=== PATIENT | female | born 1980 | race American Indian/Alaskan Native ===

== ENCOUNTER 2017-10-15 08:13 | Emergency (ER) | payer SELFPAY ==
[2017-10-15 08:59] LABS: Bacteria,Urine 1+ /HPF (Negative); Bilirubin,Urine NEG (Negative); Blood,Urine NEG (Negative); Color,Urine Yellow (Yellow); Mucus,Urine 1+ /HPF; Protein,Urine <15 mg/dL mg/dL (Negative)
[2017-10-15 09:13] LABS: Basophils % (Auto) 0.6 % (0.0-1.8); Eosinophils % (Auto) 0.5 % (0.0-4.3); Hematocrit 36.8 % (30.3-42.9); Hemoglobin 12.1 gm/dl (10.1-14.3); Lymphocytes # (Auto) 1.4 K/mm3 (1.2-5.4); Lymphocytes % (Auto) 26.1 % (13.4-35.0); Mean Corpuscular HGB Conc 33 % (30-34); Mean Corpuscular Hemoglobin 30 pg (28-32); Mean Corpuscular Volume 91 fl (79-97); Monocytes # (Auto) 0.4 K/mm3 (0.0-0.8); Monocytes % (Auto) 8.2 % (0.0-7.3); Platelet Count 253 K/mm3 (140-440); Red Blood Count 4.04 M/mm3 (3.65-5.03); Red Cell Distribution Width 12.9 % (13.2-15.2)
--- NOTE | 2017-10-15 09:18 | Emergency Department Report ---
HPI - General Chief Complaint: Psych Time Seen by Provider: 10/15/17 09:04 - HPI HPI: 37-year-old [place]kin[place] female presents the emergency department from home with what appears to be some level of depression. The patient has not been talking much, she has been pacing around, has been having difficulty sleeping and has not been eating much, and all this has gone on for the past few days. While the patient has not been talking much, she expressed to her significant other that she is not happy with her job, that she has been having "issues" with her job, and that she is concerned about the finances. She will not talk to me but will shake or not her head to answer some questions and denies any suicidal or homicidal ideations or any hallucinations. She does not have any diagnosed medical or psychiatric history. There is a history of schizophrenia and her mother. She has not taken anything for her symptoms prior to her presentation. ED Past Medical Hx - Past Medical History Previous Medical History?: Yes - Surgical History Past Surgical History?: Yes Additional Surgical History: x 2 - Social History Smoking Status: Never Smoker Substance Use Type: Non Opiate Pain ED Review of Systems ROS: Stated complaint: MENTAL HEALTH Other details as noted in HPI Comment: All other systems reviewed and negative Constitutional: denies: chills, fever Eyes: denies: eye pain, eye discharge, vision change ENT: denies: ear pain, throat pain Respiratory: denies: cough, shortness of breath, wheezing Cardiovascular: denies: chest pain, palpitations Gastrointestinal: denies: abdominal pain, nausea, diarrhea Genitourinary: denies: urgency, dysuria, discharge Musculoskeletal: denies: back pain, joint swelling, arthralgia Skin: denies: rash, lesions Neurological: denies: headache, weakness, paresthesias Psychiatric: depression. denies: auditory hallucinations, visual hallucinations , homicidal thoughts, suicidal thoughts Physical Exam - Physical Exam Vital Signs: Vital Signs 10/15/17 08:20 Temperature 98.1 F Pulse Rate 59 L Respiratory 20 Rate Blood Pressure 119/88 O2 Sat by Pulse 98 Oximetry Physical Exam: GENERAL: The patient is well-developed well-nourished. HENT: Normocephalic. Atraumatic. Patient has moist mucous membranes. EYES: Extraocular motions are intact. Pupils equal reactive to light bilaterally. NECK: Supple. Trachea is mental. CHEST/LUNGS: Clear to auscultation. There is no respiratory distress noted. HEART/CARDIOVASCULAR: Regular. There is no tachycardia. There is no murmur. ABDOMEN: Abdomen is soft, nontender. Patient has normal bowel sounds. There is no abdominal distention. SKIN: Skin is warm and dry. NEURO: Patient is awake and appears alert but is nonverbal but this appears to be by choice. She will nod and shake her head to answer questions and eventually did talk to me without any signs of any slurred speech or aphasia. MUSCULOSKELETAL: There is no tenderness or deformity. There is no evidence of acute injury. PSYCH: Patient has a flat affect. ED Course Vital Signs 10/15/17 08:20 Temperature 98.1 F Pulse Rate 59 L Respiratory 20 Rate Blood Pressure 119/88 O2 Sat by Pulse 98 Oximetry ED Medical Decision Making - Lab Data Result diagrams: 10/15/17 09:02 10/15/17 09:02 - Medical Decision Making Patient presents with what appears to be some depression. She has not been sleeping, has been pacing around, has not been eating or drinking much and is admitted to having a lot of stress regarding her job and financial responsibilities. She denies any suicidal or homicidal ideations or any hallucinations. She does not appear to be having any acute psychosis and does not appear to feel the criteria to require a 1013 or inpatient psychiatric admission. The patient was seen by the psych antique repairer, Ave, who agrees with this assessment and is provided multiple outpatient psychiatric referrals. Prior to discharge, the patient did start talking a little and asked for a work note. She was seen ambulatory without any instability. She has been encouraged to follow-up with these outpatient psychiatric referrals but to return to the emergency Department with any worsening of her symptoms or any signs of suicidal/homicidal ideations or acute psychosis. - Differential Diagnosis depression, bipolar, mood disorder Critical Care Time: No Critical care attestation.: If time is entered above; I have spent that time in minutes in the direct care of this critically ill patient, excluding procedure time. ED Disposition Clinical Impression: Depression Qualifiers: Depression Type: unspecified Qualified Code(s): F32.9 - Major depressive disorder, single episode, unspecified Disposition: DC-01 TO HOME OR SELFCARE Is pt being admited?: No Condition: Stable Instructions: Depression (ED) Additional Instructions: Please follow-up with your primary care physician. Also please follow-up with one of the psychiatric referrals that she were given including [place] [facility], [facility] and the [facility]. Return to the emergency Department with any worsening of your symptoms, thoughts of harming yourself or others, or with any acute distress. Referrals: PRIMARY CARE, [Primary Care Provider] - 3-5 Days [facility] Days Forms: Work/School Release Form(ED) Time of Disposition: 10:34
[2017-10-15 09:30] LABS: Amphetamine Screen,Urine PRESUMPTIVE NEGATIVE; Benzodiazepines Screen,Urine PRESUMPTIVE NEGATIVE; Cannabinoid Screen,Urine PRESUMPTIVE NEGATIVE; Cocaine Screen,Urine PRESUMPTIVE NEGATIVE; Methadone Screen,Urine PRESUMPTIVE NEGATIVE; Opiate Screen,Urine PRESUMPTIVE NEGATIVE
[2017-10-15 09:36] LABS: BUN/Creatinine Ratio 17; Blood Urea Nitrogen 10 mg/dL (7-17); Hemolysis Index 13
[2017-10-15 11:00] VITALS: BP 122/78
== END 2017-10-15 10:48 | disposition home or self-care (01) ==
LOC: ED 08:13
DX: F32.9 Major depressive disorder, single episode, unspecified (principal)
CPT/HCPCS: 36415; 80048; 80307; 81001; 84703; 85025; 99283; G0480; 80320

== ENCOUNTER 2018-09-18 17:09 | Emergency (ER) | payer OTHER ==
[2018-09-18 17:17] VITALS: BP 140/94
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
[2018-09-18 17:43] LABS: HCG Qualitative,Urine Negative (Negative)
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
== END 2018-09-18 21:50 | disposition home or self-care (01) ==
LOC: ED 17:09
DX: M54.5 Low back pain (principal); V49.49XA Driver injured in collision with other motor vehicles in traffic accident, initial encounter; Y93.89 Activity, other specified; Y92.488 Other paved roadways as the place of occurrence of the external cause; Y99.8 Other external cause status
CPT/HCPCS: 72070; 72100; 81025; 99283

== ENCOUNTER 2019-03-04 11:23 | Emergency (ER) | payer OTHER ==
--- NOTE | 2019-03-04 11:41 | Event Note ---
ED Screening Note ED Screening Note: at 8:30 AM this morning attempted overdose states she feels drowsy denies any other symptoms took 4 toradol and 5-7 robaxin states she had a cup of wine as well took them to harm herself never done this before never been to a psych facility in the past no PMHx no allergies to meds LNMP: last week non smoker occ drinker denies drug use This initial assessment/diagnostic orders/clinical plan/treatment(s) is/are subject to change based on patients health status, clinical progression and re-assessment by fellow clinical providers in the ED. Further treatment and workup at subsequent clinical providers discretion. Patient/guardian urged not to elope from the ED as their condition may be serious if not clinically assessed and managed. Initial orders include: psych protocol, poison control called by RN will send to the MAIN ED for evaluation by MD poison control called by RN: no charcoal recommended at this time, recommended a CBC, CMP, salicylate level, tylenol level, alcohol level, and EKG
[2019-03-04 11:59] LABS: Eosinophils % (Auto) 0.9 % (0.0-4.3); Hemoglobin 13.1 gm/dl (10.1-14.3); Lymphocytes # (Auto) 1.7 K/mm3 (1.2-5.4); Lymphocytes % (Auto) 37.3 % (13.4-35.0); Mean Corpuscular HGB Conc 35 % (30-34); Mean Corpuscular Volume 90 fl (79-97); Monocytes # (Auto) 0.3 K/mm3 (0.0-0.8); Platelet Count 294 K/mm3 (140-440); Red Cell Distribution Width 13.3 % (13.2-15.2)
[2019-03-04 12:22] LABS: Alanine Aminotransferase 9 units/L (7-56); Albumin 3.2 g/dL (3.9-5); BUN/Creatinine Ratio 9; Blood Urea Nitrogen 10 mg/dL (7-17); Calcium 8.8 mg/dL (8.4-10.2); Hemolysis Index 8
--- NOTE | 2019-03-04 13:59 | Emergency Department Report ---
ED Psych HPI - General Chief Complaint: Overdose Stated Complaint: OVERDOSE Time Seen by Provider: 03/04/19 11:38 Source: patient Mode of arrival: Ambulatory - History of Present Illness Initial Comments: 38-year-old female presents to ED with suicide attempt. Patient attempted overdose by taking 4 Toradol pills, in 5-7 Robaxin pills. Patient reports drinking wine along with it. Denies any past history of mental illness or suicide attempt. Patient states she called a friend after she took the pills, and that friend brought her to the ER. MD Complaint: suicidal ideation -: This morning Associated Psychiatric Symptoms: suicidal ideation History of same: No Quality: constant Improves With: none Worsens With: none Context: significant life stressor Associated Symptoms: denies other symptoms If Self Harm: intentional overdose - Related Data Previous Rx's Medication Instructions Recorded Last Taken Type Ketorolac [Toradol] 10 mg PO Q6H PRN #15 tablet 09/18/18 03/04/19 08:30 Rx methOCARBAMOL [Robaxin] 750 mg PO Q8H PRN #21 tablet 09/18/18 03/04/19 08:30 Rx Allergies Allergy/AdvReac Type Severity Reaction Status Date / Time No Known Allergies Allergy Unverified 10/15/17 08:20 ED Review of Systems ROS: Stated complaint: OVERDOSE Other details as noted in HPI Comment: All other systems reviewed and negative Neurological: headache Psychiatric: depression, suicidal thoughts ED Past Medical Hx - Past Medical History Previous Medical History?: No - Surgical History Past Surgical History?: No Additional Surgical History: x 2 - Social History Smoking Status: Never Smoker - Medications Home Medications: Home Medications Medication Instructions Recorded Confirmed Last Taken Type Ketorolac [Toradol] 10 mg PO Q6H PRN #15 tablet 09/18/18 03/04/19 03/04/19 08:30 Rx methOCARBAMOL [Robaxin] 750 mg PO Q8H PRN #21 tablet 09/18/18 03/04/19 03/04/19 08:30 Rx ED Physical Exam - General Limitations: No Limitations General appearance: alert, in no apparent distress - Head Head exam: Present: atraumatic, normocephalic - Eye Eye exam: Present: normal appearance, PERRL, EOMI - ENT ENT exam: Present: mucous membranes moist - Neck Neck exam: Present: normal inspection - Respiratory Respiratory exam: Present: normal lung sounds bilaterally. Absent: respiratory distress - Cardiovascular Cardiovascular Exam: Present: regular rate, normal rhythm - GI/Abdominal GI/Abdominal exam: Present: soft. Absent: distended - Extremities Exam Extremities exam: Present: normal inspection - Neurological Exam Neurological exam: Present: alert, oriented X3, CN II-XII intact. Absent: motor sensory deficit - Psychiatric Psychiatric exam: Present: normal affect, normal mood - Skin Skin exam: Present: warm, dry, intact, normal color ED Course Vital Signs 03/04/19 03/04/19 03/04/19 11:40 11:59 13:01 Temperature 98.3 F 98.5 F Pulse Rate 79 64 Respiratory 18 13 18 Rate Blood Pressure 140/100 134/86 [Left] O2 Sat by Pulse 98 99 98 Oximetry ED Medical Decision Making - Lab Data Result diagrams: 03/04/19 11:46 03/04/19 11:46 - EKG Data -: EKG Interpreted by Tx EKG shows normal: sinus rhythm, axis, intervals, QRS complexes, ST-T waves Rate: normal - EKG Data Interpretation: no acute changes - Medical Decision Making - suicidal ideation, attempted overdose - pt placed on 1013 - labs normal - pt medically clear for mental health evaluation - will dispo per psych - Differential Diagnosis SI, depression Critical care attestation.: If time is entered above; I have spent that time in minutes in the direct care of this critically ill patient, excluding procedure time. ED Disposition Clinical Impression: Suicidal ideation, Intentional overdose of drug in tablet form Disposition: DC/TX-65 PSY HOSP/PSY UNIT Is pt being admited?: No Condition: Stable
[2019-03-04 14:11] LABS: Bilirubin,Urine NEG (Negative); Blood,Urine NEG (Negative); Color,Urine Yellow (Yellow); Mucus,Urine 2+ /HPF; Protein,Urine <15 mg/dL mg/dL (Negative); Urobilinogen,Urine < 2.0 mg/dL (<2.0)
[2019-03-04 14:15] LABS: Amphetamine Screen,Urine PRESUMPTIVE NEGATIVE; Benzodiazepines Screen,Urine PRESUMPTIVE NEGATIVE; Cannabinoid Screen,Urine PRESUMPTIVE NEGATIVE; Cocaine Screen,Urine PRESUMPTIVE NEGATIVE; Methadone Screen,Urine PRESUMPTIVE NEGATIVE; Opiate Screen,Urine PRESUMPTIVE NEGATIVE
[2019-03-04] MEDS ORDERED: HALDOL IM ONE (22:08)
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
--- NOTE | 2019-03-06 12:01 | Progress Note ---
Subjective - Reason for Consult Consult date: 03/06/19 Reason for consult: Psychiatry Follow-up - Chief Complaint Chief complaint: "I made a mistake" 38-year-old female that presents to ED after a suicide attempt via overdose. Today the patient was calm and cooperative during the assessment. She stated that she made a "terrible mistake" by taking several pills. She stated that she was "stressed" at the time. She stated that it was a better way of handling her crisis. She stated that she is willing to seek therapy once discharged. She denies SI/HI's and AVH's. Mental Status Exam - Vital signs Last Vital Signs Temp 97.8 F 03/06/19 09:41 Pulse 73 03/06/19 09:41 Resp 18 03/06/19 09:41 BP 138/100 03/06/19 09:41 Pulse Ox 99 03/06/19 09:41 - Exam Narrative exam: MSE: Appearance: calm, cooperative Behavior: regular eye contact Speech: regular rate and tone Mood: "okay" Affect: congruent to mood Thought Process: circumstantial Thought Content: denies SI/HI's and AVH's Motor Activity: lying in bed Cognition: A/O x 3 Insight: fair Judgment: variable Assessment and Plan Impression: MDD. Today the patient was calm and cooperative during the assessment. Recommendations/Plan: Continue 1013 and gather collateral information. Risks/Benefits of SSRI's discussed with the patient, she prefer talk therapy at this time. Dispo: The patient was referred to inpatient psychiatric services. Staffed with Dr. Matthias aMin.
[2019-03-07 08:00] VITALS: BP 127/83
--- NOTE | 2019-03-07 10:32 | Progress Note ---
Subjective - Reason for Consult Consult date: 03/07/19 Reason for consult: Psychiatry Follow-up - Chief Complaint Chief complaint: "I will not do that again" 38-year-old female that presents to ED after a suicide attempt via overdose. Today the patient was calm and cooperative during the assessment. Per collateral information from the patient's sister Justine Loza at [phone], she stated that the patient was "stressed." She denied that the patinet tried to kill herslef in the past. She stated that she will be the patient's support system. The patient denies SI/HI's and AVH's. The patient have been pleasant since her arrival to the ER. Mental Status Exam - Vital signs Last Vital Signs Temp 98.4 F 03/07/19 07:41 Pulse 83 03/07/19 07:41 Resp 16 03/07/19 07:41 BP 127/83 03/07/19 07:41 Pulse Ox 100 03/07/19 07:41 - Exam Narrative exam: MSE: Appearance: calm, cooperative Behavior: regular eye contact Speech: regular rate and tone Mood: "okay" Affect: congruent to mood Thought Process: logical Thought Content: denies SI/HI's and AVH's Motor Activity: lying in bed Cognition: A/O x 3 Insight: appropriate Judgment: appropriate Assessment and Plan Impression: MDD. Today the patient was calm and cooperative during the assessment. The patient is no threat to self. Suicide Risk Assessment I. This screening and assessment is based on information collected from the following sources: II. SUICIDE RISK SCREENING (within last 30 days): A.) Suicidal thoughts/behaviors: Yes SUICIDE RISK ASSESSMENT III. FACTORS THAT INCREASE RISK: A.) Demographic and Substance Use Factors: No B.) Current/Recent Factors (within past 3 months): Psychosocial/Environmental Factors: Life Stressors Physical Illness: None Cognitive/Psychological Factors: None C.) Historical Factors: None D.) Diagnostic/Symptom/Treatment Factors: None E.) Acute Risk Factor Severity (DESC; MILD/MOD/SEVERE): Mild Other factors for this individual that increase risk: None IV. FACTORS THAT DECREASE RISK: Resilience/Protective Factors: Patient want to decrease her stress Other factors for this individual that decrease risk: Patient denies a desire to harm self V. Clinician's Formulation of Risk and Determination of level of Care: This is a 38 y.o. AA female who ingested several pills prior to her arrival to the ER. She stated that she took the pills because she was stressed. She acknowledged that she should have not ingested the pills and her actions were unsafe. She stated that she will follow-up with outpatient psy services once discharged. Since being hospitalized the patient has consistently denied the desire to harm herself. Additionally, she has become insightful about how to better address her issues. The patient is not impaired by substance. She is able to take care of her ADLs and is not at imminent risk of harm to self or others. Consequently, it is the opinion of the treatment team that the patient is at low risk of suicide and does not meet criteria to continue an involuntary psychiatric hold. Estimation of Imminent Risk: Low due to the above explanation. Determination of Level of Care based on Suicide Risk: Outpatient follow-up. Narrative description of clinical reasoning. Given the fact that the patient is willing to engage in outpatient psy services and have a supportive network Justine Loza (sister). She is regretful of her prior decision and has several things in his life to look forward to. At this current time, she is not impulsive and does not have any risk factors to increase the likelihood of her impulsive behavior. Therefore, it is reasonable to expect that the patient will engage in outpatient psy services which will reduce further unsafe behaviors. . Plan and Interventions based on Suicide Risk: This patient will likely be stepped down to an outpatient mental health center in the community upon discharge and follow-up within 7 days of her discharge from the hospital. VII. Discharge/After Hours Support Plan: Patient can return back to the ER, call 911 or crisis line if symptoms of depression, anxiety, suicidality return. Recommendations/Plan: Rescind 1013. Risks/Benefits of SSRI's discussed with the patient, she prefer talk therapy at this time. Discussed generalized coping skills with the patient, she verbalized understanding. Safety Contract completed. Dispo: The patient can follow up with [facility] for outpatient psy services (therapy). Staffed with Dr. Matthias Main.
== END 2019-03-07 13:23 | disposition home or self-care (01) ==
LOC: ED 11:23 → EEVIPCON 11:23 → ED 03-07 13:23
DX: T39.8X2A Poisoning by other nonopioid analgesics and antipyretics, not elsewhere classified, intentional self-harm, initial encounter (principal); F32.9 Major depressive disorder, single episode, unspecified; Y92.89 Other specified places as the place of occurrence of the external cause
CPT/HCPCS: 36415; 80053; 80307; 80320; 81001; 84703; 85025; 93005; 93010; G0480

== ENCOUNTER 2019-06-18 13:57 | Emergency (ER) | payer BC ==
--- NOTE | 2019-06-18 14:28 | Emergency Department Report ---
Chief Complaint: Urogenital-Female Stated Complaint: DISCHARGE Time Seen by Provider: 06/18/19 14:17 - HPI History of Present Illness: This is a 38 y.o. F. that presents to the ER with vaginal discharge for 1 week. Completed 1 week of monistat cream with no change in symptoms. Denies fever, pelvic pain, back pain, urinary frequency, urgency, or dysuria. - Exam Vital Signs: Vital Signs 06/18/19 14:28 Temperature 97.1 F L Pulse Rate 96 H Respiratory 18 Rate Blood Pressure 160/100 O2 Sat by Pulse 96 Oximetry MSE screening note: Focused history and physical exam performed. Due to findings the following was ordered: ED Disposition for MSE Condition: Stable
[2019-06-18 14:29] VITALS: BP 160/100
== END 2019-06-18 15:00 | disposition left against medical advice (07) ==
LOC: ED 13:57
DX: N89.8 Other specified noninflammatory disorders of vagina (principal)
CPT/HCPCS: 99282

== ENCOUNTER 2019-07-02 08:24 | Outpatient (CLI) | payer BC ==
[2019-07-02 08:39] LABS: Basophils # (Auto) 0.1 K/mm3 (0.0-0.1); Basophils % (Auto) 0.9 % (0.0-1.8); Eosinophils # (Auto) 0.1 K/mm3 (0.0-0.4); Eosinophils % (Auto) 1.6 % (0.0-4.3); Hemoglobin 12.6 gm/dl (10.1-14.3); Lymphocytes # (Auto) 1.5 K/mm3 (1.2-5.4); Lymphocytes % (Auto) 26.1 % (13.4-35.0); Mean Corpuscular HGB Conc 33 % (30-34); Mean Corpuscular Volume 91 fl (79-97); Monocytes # (Auto) 0.4 K/mm3 (0.0-0.8); Monocytes % (Auto) 6.2 % (0.0-7.3); Platelet Count 304 K/mm3 (140-440); Red Blood Count 4.18 M/mm3 (3.65-5.03); Red Cell Distribution Width 13.4 % (13.2-15.2)
[2019-07-02 09:06] LABS: Alanine Aminotransferase 12 units/L (7-56); Albumin 3.2 g/dL (3.9-5); BUN/Creatinine Ratio 15; Blood Urea Nitrogen 16 mg/dL (7-17); Calcium 8.9 mg/dL (8.4-10.2); Hemolysis Index 10; LDL Cholesterol,Direct 104 mg/dL (50-130)
[2019-07-02 09:18] LABS: Chol/HDL Ratio 2.19 %; HDL Cholesterol 82 mg/dL (40-59)
[2019-07-07 06:08] LABS: Vitamin D, 25-OH, D2 <4 ng/mL
== END 2019-07-02 08:25 | disposition home or self-care (01) ==
LOC: LAB 08:24
PROVIDERS: ATTEND Internal Medicine
DX: Z00.00 Encounter for general adult medical examination without abnormal findings (principal); Z13.0 Encounter for screening for diseases of the blood and blood-forming organs and certain disorders involving the immune mechanism; Z13.220 Encounter for screening for lipoid disorders; Z13.29 Encounter for screening for other suspected endocrine disorder; Z13.21 Encounter for screening for nutritional disorder
CPT/HCPCS: 36415; 80053; 80061; 82306; 82607; 83036; 84443; 85025

== ENCOUNTER 2020-10-03 18:49 | Emergency (ER) | payer OTHER ==
[2020-10-03] MEDS ORDERED: predniSONE 20 MG TAB PO ONE (19:43)
[2020-10-03] MEDS ORDERED: BUTALB/ACETAMINOPHEN/CAFFEINE TAB PO STA (19:43)
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
[2020-10-03 20:47] VITALS: BP 145/105
== END 2020-10-03 21:26 | disposition home or self-care (01) ==
LOC: ED 18:49
DX: S16.1XXA Strain of muscle, fascia and tendon at neck level, initial encounter (principal); R51.9 Headache, unspecified; I10 Essential (primary) hypertension; Z79.899 Other long term (current) drug therapy; V49.49XA Driver injured in collision with other motor vehicles in traffic accident, initial encounter; Y93.89 Activity, other specified; Y92.488 Other paved roadways as the place of occurrence of the external cause; Y99.8 Other external cause status
CPT/HCPCS: 99282; J7512

== ENCOUNTER 2022-02-22 12:31 | Outpatient (CLI) | payer BC, OTHER ==
[2022-02-22 15:39] LABS: Basophils % (Auto) 0.4 % (0.0-1.8); Eosinophils # (Auto) 0.1 K/mm3 (0.0-0.4); Eosinophils % (Auto) 1.6 % (0.0-4.3); Hematocrit 36.1 % (30.3-42.9); Hemoglobin 11.6 gm/dl (10.1-14.3); Lymphocytes # (Auto) 1.3 K/mm3 (1.2-5.4); Lymphocytes % (Auto) 29.2 % (13.4-35.0); Mean Corpuscular HGB Conc 32 % (30-34); Mean Corpuscular Volume 85 fl (79-97); Monocytes # (Auto) 0.4 K/mm3 (0.0-0.8); Monocytes % (Auto) 8.8 % (0.0-7.3); Platelet Count 259 K/mm3 (140-440); Red Blood Count 4.23 M/mm3 (3.65-5.03)
[2022-02-22 15:47] LABS: Alanine Aminotransferase 11 units/L (7-56); Albumin 4.5 g/dL (3.9-5); BUN/Creatinine Ratio 15; Blood Urea Nitrogen 16 mg/dL (7-17); Calcium 9.4 mg/dL (8.4-10.2); Chol/HDL Ratio 2.41 %; HDL Cholesterol 70 mg/dL (40-59); Hemolysis Index 4; LDL Cholesterol,Direct 89 mg/dL (50-130)
== END 2022-02-22 12:32 | disposition home or self-care (01) ==
LOC: LABHHL 12:31
PROVIDERS: ATTEND Internal Medicine
DX: Z00.00 Encounter for general adult medical examination without abnormal findings (principal); N28.9 Disorder of kidney and ureter, unspecified; I10 Essential (primary) hypertension; E55.9 Vitamin D deficiency, unspecified; E66.9 Obesity, unspecified; R53.83 Other fatigue
CPT/HCPCS: 36415; 80053; 80061; 82306; 84443; 85025